=== PATIENT | female | born 1970 | race Hispanic/Latino ===

== ENCOUNTER 2023-03-17 10:08 | Outpatient (CLI) | payer OTHER ==
[~2023-03-17 10:08] MED LIST: Iopamidol 300 61% 100 ML VIAL FS ONE
== END 2023-03-17 10:09 | disposition home or self-care (01) ==
LOC: CSHCT 10:08
PROVIDERS: ATTEND Urology
DX: R33.9 Retention of urine, unspecified (principal); N28.89 Other specified disorders of kidney and ureter; N21.0 Calculus in bladder; R82.71 Bacteriuria; Z87.442 Personal history of urinary calculi; K76.89 Other specified diseases of liver; N83.9 Noninflammatory disorder of ovary, fallopian tube and broad ligament, unspecified
CPT/HCPCS: 74178